=== PATIENT | male | born 1990 | race Caucasian/White ===

== ENCOUNTER 2019-05-03 21:33 | Emergency (ER) | payer OTHER ==
[~2019-05-03] VITALS: Ht 188 cm; Wt 100.0 kg
[2019-05-03] MEDS ORDERED: 12 H0.05 (21:43)
[2019-05-03] MEDS ORDERED: BENZONATATE 100 MG CAP PO ONE (23:15)
[2019-05-03] MEDS ORDERED: NASA1SPR NARES (23:24)
[2019-05-03] MEDS ORDERED: BENZ200C70 PO (23:24)
[2019-05-03] MEDS ORDERED: CETI10CA2 PO (23:24)
[2019-05-03 23:33] VITALS: BP 153/85
[2019-05-04] MEDS ORDERED: ZITHTAB PO (19:53)
--- NOTE | 2019-05-04 19:55 | ED PDOC ---
Post-Departure Follow-Up called patient and gave respiratory panel results of adenovirus and chlamydia pneumoniae. sent in prescription for z pack. DAVID WHITE PA-C. May 04, 2019 19:55
== END 2019-05-03 23:36 | disposition home or self-care (01) ==
LOC: M ED 21:33
DX: J00 Acute nasopharyngitis [common cold] (principal); Z79.899 Other long term (current) drug therapy

== ENCOUNTER 2019-10-06 09:46 | Emergency (ER) | payer OTHER ==
[~2019-10-06] VITALS: Ht 188 cm; Wt 100.8 kg
[~2019-10-06 09:46] MED LIST: 12 H0.05; BENZ200C70 PO; CETI10CA2 PO; NASA1SPR NARES; ZITHTAB PO
[2019-10-06] MEDS ORDERED: EXCETAB33 PO (09:51)
[2019-10-06] MEDS ORDERED: NS 1,000 ML IV ONE (11:15)
[2019-10-06] MEDS ORDERED: KETOROLAC 30 MG/ML VIAL (J1885) IV ONE (11:15)
[2019-10-06] MEDS ORDERED: diphenhydrAMINE INJ 50MG/ML VIAL (J1200) IV ONE (11:15)
[2019-10-06] MEDS ORDERED: METOCLOPRAMIDE INJ 10MG/2ML VIAL (J2765) IV ONE (11:15)
[2019-10-06 13:43] VITALS: BP 125/81
== END 2019-10-06 13:45 | disposition home or self-care (01) ==
LOC: M ED 09:46
DX: G43.909 Migraine, unspecified, not intractable, without status migrainosus (principal); Z79.82 Long term (current) use of aspirin
CPT/HCPCS: 96374; 96375; 99284; J1200; J1885; J2765

== ENCOUNTER → 2021-01-25 | Outpatient (CLI) | payer OTHER ==
[~2021-01-25] MED LIST changes: +EXCETAB33 PO
--- NOTE | 2021-01-25 07:35 | PFTRPT ---
Height: 74.00 Inches Weight: 225.00 Lbs BSA: 2.28 Diagnosis: EMPLOYMENT STATUS DATE: 01/25/2021 ORDERED BY: Peña Calvo D.O. Pre and post bronchodilator studies have excellent technical quality. Forced vital capacity is normal. FEV1 is in proportion. Obstructive index is therefore normal. Expiratory limit of the flow-volume loop normal. No bronchodilator response was tested. Total lung capacity is normal. Residual volume is generally in proportion. Diffusing capacity is normal. No hemoglobin for correction. Airway resistance and conductance are normal. IMPRESSION: Normal study. MTDD
== END ==
LOC: M CARPUL 06:51
PROVIDERS: ATTEND Family Medicine
DX: J06.9 Acute upper respiratory infection, unspecified (principal); J30.1 Allergic rhinitis due to pollen